=== PATIENT | male | born 1930 | race Caucasian/White ===

== ENCOUNTER → 2016-04-25 21:07 | Outpatient (CLI) | payer MEDICARE, OTHER ==
[2016-04-25 23:04] LABS: ANION GAP 14.4 mmol/L (8-16); CALCIUM 9.4 mg/dL (8.5-10.1); CARBON DIOXIDE 25.8 mmol/L (21.0-32.0); CHOL - HDL RATIO 2.3 ratio (2.3-4.9); CREATININE - SERUM 1.3 mg/dL (0.6-1.3); LDL-HDL RATIO 1.1 ratio (1.5-3.5); POTASSIUM - SERUM 4.2 mmol/L (3.5-5.1)
== END | disposition home or self-care (01) ==
LOC: D.LABREF 21:07
PROVIDERS: Internal Medicine Interventional Cardiology
DX: I10 Essential (primary) hypertension (principal); I25.10 Atherosclerotic heart disease of native coronary artery without angina pectoris

== ENCOUNTER → 2018-06-18 08:22 | Outpatient (CLI) | payer MEDICARE, OTHER ==
--- NOTE | 2018-06-25 08:49 | EC ---
PATIENT:PAUL BOYD JR DATE OF SERVICE: 06/18/18 SEX: M MEDICAL RECORD: [id number] DATE OF : [birth year] LOCATION:D[facility] AGE OF PATIENT: 88 ADMISSION DATE: 06/18/18 REFERRING PHYSICIAN: INTERPRETING PHYSICIAN: CAROLIN LUZ MD ECHOCARDIOGRAM REPORT ECHO CHARGES 4 ECHO COMPLETE Date: 06/18/18 CLINICAL DIAGNOSIS: CAD/RECENT LOWER EDEMA, ASSESS EF AND VALVES ECHOCARDIOGRAPHIC MEASUREMENTS (adult normal given) AC root (d.<3.7cm) 3.9 cm LV Septum d (<1.2 cm> 1.4 cm Valve Excursion 1.3 cm LV Septum (systole) 1.7 cm Left Atria (s.<4.0cm> 5.8 cm LVPW d(<1.2cm) 1.5 cm RV (d.<2.3cm) 4.5 cm LVPW (sytole) 1.9 cm LV diastole(<5.6CM) 5.2 cm MV E-F(>70mm/sec) cm LV systole 3.7 cm LVOT Diameter 2.0 cm MV exc.(>10mm) 1.5 cm Est.ejection fraction (50-75%) % DOPPLER: LVIT cm/sec A 117 cm/sec E 79.0 cm/sec LA cm/sec RVSP 31 mmHg LVOT 94 cm/sec AOP1/2T m/s Asc. Ao 332 cm/sec RVOT 92 cm/sec RA cm/sec PA 197 cm/sec AV Gradient Peak 44.14mmHg AV Mean 26.60mmHg AV Area 1.0 cm MV Gradient Peak 6.48 mmHg MV Mean 2.19 mmHg MV Area cm COMMENTS: Tape Maker: 2 SHAILA DICKERSON Under Seal Operator: 3 Dr. Castillo TAPE# PACS Pericardial Effusion N DATE OF SERVICE: Adequate 2D color flow, spectral Doppler, and M-Mode Mild LVH. LV internal dimensions are normal. Wall motion is normal, EF is greater than or equal to 55%. 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 Peak gradient of 45 mmHg, putting this in the moderate range. There is trace AI as well. Left atrium is dilated at 5.3 cm. Mitral valve shows no prolapse. Mild MR. Right sided chambers are normal. Trace TR. ECHOCARDIOGRAM REPORT [id number] PAUL BOYD JR TRANSINT:[id number] Voice Confirmation ID: [id number] DOCUMENT ID: [id number] CAROLIN LUZ MD at 0849 CC: [id number] DICTATION DATE: 06/20/181403 TESTING LEAD: 06/20/182043 DEP CLI 06/18/18 [place] [id number] [place] [id number]
== END | disposition home or self-care (01) ==
LOC: D.HCCARDIO 08:22
PROVIDERS: ATTEND Internal Medicine Interventional Cardiology
DX: I25.10 Atherosclerotic heart disease of native coronary artery without angina pectoris (principal)